=== PATIENT | male | born 1985 | race Caucasian/White ===

== ENCOUNTER 2019-05-18 21:21 | Emergency (ER) | payer MEDICAID ==
[~2019-05-18] VITALS: Ht 172.7 cm; Wt 99.8 kg
--- NOTE | 2019-05-18 21:45 | NUR ---
Patient discharged to home in stable conditon. Written and verbal after care instructions given. Patient verbalizes understanding of instructions.
[2019-05-18 21:48] VITALS: BP 121/71
== END 2019-05-18 21:49 | disposition home or self-care (01) ==
LOC: ER 21:21
DX: M79.621 Pain in right upper arm (principal); B95.8 Unspecified staphylococcus as the cause of diseases classified elsewhere; F17.210 Nicotine dependence, cigarettes, uncomplicated
CPT/HCPCS: A4663

== ENCOUNTER 2019-05-21 17:41 | Emergency (ER) | payer MEDICAID ==
[~2019-05-21] VITALS: Ht 172.7 cm; Wt 99.8 kg
--- NOTE | 2019-05-21 18:35 | NUR ---
Dr Plummer at the bedside for MSE.
[2019-05-21] MEDS ORDERED: SULF1TAB48 PO (18:38)
[2019-05-21] MEDS ORDERED: LIDOCAINE 1%-EPI 1:100,000 20 ML VIAL TP ONE (18:45)
[2019-05-21] MEDS ORDERED: IBUPROFEN 600 MG TABLET PO ONE (19:00)
[2019-05-21] MEDS ORDERED: IBUPROFEN 600 MG TABLET ONE (19:04)
--- NOTE | 2019-05-21 19:13 | NUR ---
Patient discharged to home in stable conditon. Written and verbal after care instructions given. Patient verbalizes understanding of instructions. patient is alert and oriented x4. Patient is ambulatory with steady gait. Exit care package and personal belongings taken with the patient at discharge.
[2019-05-21 19:16] VITALS: BP 198/84
== END 2019-05-21 19:17 | disposition home or self-care (01) ==
LOC: ER 17:46
DX: L02.411 Cutaneous abscess of right axilla (principal); F17.210 Nicotine dependence, cigarettes, uncomplicated; Z79.899 Other long term (current) drug therapy
CPT/HCPCS: 10060; 99283; J3490; A4663

== ENCOUNTER 2020-03-06 00:05 | Emergency (ER) | payer MEDICAID ==
[~2020-03-06] VITALS: Ht 172.7 cm; Wt 103.2 kg
[~2020-03-06 00:05] MED LIST: SULF1TAB48 PO
[2020-03-06] MEDS: NITROGLYCERIN 0.4 MG/TAB BOTTLE SL ONE (00:28)
[2020-03-06] MEDS ORDERED: NITROGLYCERIN 0.4 MG/TAB BOTTLE SL ONE (00:31)
[2020-03-06] MEDS: ASPIRIN 325 MG TABLET PO ONE (00:31)
[2020-03-06] MEDS: IV NORMAL SALINE 1000 ML BAG IV ONE (00:31)
[2020-03-06] MEDS ORDERED: ASPIRIN 325 MG TABLET ONE (00:31)
[2020-03-06 00:32] LABS: BASOPHILS # (AUTO) 0.1 K/uL (0.0-8.0); BASOPHILS % (AUTO) 0.5 % (0.0-2.0); EOSINOPHILS # (AUTO) 0.2 K/uL (0.0-0.7); EOSINOPHILS % (AUTO) 1.5 % (0.0-7.0); HEMATOCRIT 47.4 % (36.7-47.1); LYMPHOCYTES # (AUTO) 3.2 K/uL (20.0-40.0); LYMPHOCYTES % (AUTO) 26.4 % (20.5-51.5); MEAN CORPUSCULAR HGB CONC 34 g/dL (32.5-36.3); MEAN CORPUSCULAR VOLUME 85.9 fL (73.0-96.2); MONOCYTES # (AUTO) 0.8 K/uL (2.0-10.0); MONOCYTES % (AUTO) 6.6 % (0.0-11.0); NEUTROPHILS # (AUTO) 7.9 K/uL (1.8-8.9); PLATELET COUNT (AUTO) 290 K/uL (152-348); RED BLOOD CELL COUNT(AUTO) 5.51 MIL/uL (4.06-5.63); WHITE BLOOD COUNT (AUTO) 12.1 K/uL (3.6-10.2)
[2020-03-06 00:37] LABS: CARBON DIOXIDE 29 mmol/L (21-32); CHLORIDE 105 mmol/L (98-107); CREATININE 1.7 mg/dL (0.6-1.3); GLUCOSE 101 mg/dL (74-106); POTASSIUM 3.9 mmol/L (3.5-5.1); UREA NITROGEN, BLOOD 22 mg/dL (7-18)
[2020-03-06 00:50] LABS: ALANINE AMINOTRANSFERASE 42 U/L (16-63); ALKALINE PHOSPHATASE 85 U/L (50-136); ASPARTATE AMINOTRANSFERASE 17 U/L (15-37); BILIRUBIN,DIRECT < 0.1 mg/dL (0.0-0.2); BILIRUBIN,TOTAL 0.4 mg/dL (0.2-1.0); TOTAL PROTEIN, SERUM 7.3 g/dL (6.4-8.2)
[2020-03-06] MEDS: KETOROLAC TROMETHAMINE 30 MG INJ IVP ONE (01:06)
[2020-03-06] MEDS ORDERED: KETOROLAC TROMETHAMINE 30 MG INJ ONE (01:07)
[2020-03-06 01:13] VITALS: BP 136/70
--- NOTE | 2020-03-06 01:13 | NUR ---
IV removed. Catheter intact and site benign. Pressure and 4x4 gauze applied to site. No bleeding noted. Patient discharged to home in stable condition. Written and verbal after care instructions given. Patient verbalizes understanding of instructions. Stressed follow up or return to ER for worsening s/s.
== END 2020-03-06 01:20 | disposition home or self-care (01) ==
LOC: ER 00:09
DX: R07.89 Other chest pain (principal); R94.31 Abnormal electrocardiogram [ECG] [EKG]; F17.210 Nicotine dependence, cigarettes, uncomplicated
CPT/HCPCS: 36415; 71045; 80048; 80076; 83880; 84484; 85025; 85730; 93005; 96374; 99285; J1885; 70030-TC; A4663; J7030